=== PATIENT | female | born 1975 | race Caucasian/White ===

== ENCOUNTER → 2020-11-04 | Outpatient (CLI) | payer OTHER ==
[~2020-11-04] MED LIST: ANAPROX DS550 MG PO; ATIVAN0.5 MG PO; B121000 MCG/2; CIPROFLOXACIN500 MG PO; FLAGYL500 MG PO; FLEXERIL10 MG PO; KEFLEX500 MG PO; NAPROSYN500 MG PO; TRAMADOL HCL50 MG PO; VICODIN 5/500 505 MG PO; XANAX0.25 MG; [UNRECOGNIZED DRUG - OTHER]
== END | disposition home or self-care (01) ==
LOC: COVID19 12:39
PROVIDERS: ATTEND Internal Medicine
DX: U07.1 COVID-19 (principal)

== ENCOUNTER → 2021-09-03 | Outpatient (CLI) | payer OTHER ==
[2021-09-03 13:20] LABS: BASO # 0.1 10*3/uL (0.0-0.1); BASO % 0.8 % (0.0-1.0); EOS # 0.3 10*3/uL (0.0-0.4); EOS % 4.4 % (1.0-4.0); HEMATOCRIT 46.3 % (37.0-47.0); LYMPH # 1.9 10*3/uL (1.3-4.4); LYMPH % 31.9 % (27.0-41.0); MEAN CELL VOLUME 98.9 fl (81.0-99.0); MEAN CORPUSCULAR HGB 32.1 pg (27.0-31.0); MEAN CORPUSCULAR HGB CONC 32.4 g/dl (33.0-37.0); MEAN PLATELET VOLUME 8.3 fl (9.6-12.3); MONO # 0.7 10*3/uL (0.1-1.0); MONO % 12.3 % (3.0-9.0); NEUT % 50.4 % (47.0-73.0); PLATELET COUNT AUTOMATED 348 10*3/uL (130-400); RED BLOOD COUNT 4.68 10*6/uL (4.10-5.10)
[2021-09-03 13:42] LABS: ALBUMIN 3.5 gm/dl (3.1-4.5); BUN 11 mg/dl (7-24); CHLORIDE 109 mmol/L (98-107); CREATININE 0.96 mg/dL (0.55-1.02); POTASSIUM 4.5 mmol/L (3.5-5.1); SGOT/AST 14 IU/L (3-35); SGPT/ALT 24 U/L (12-78); SODIUM 137 mmol/L (136-145); TOTAL PROTEIN 7.2 gm/dL (6.4-8.2); URIC ACID 3.9 mg/dL (2.6-6.0)
[2021-09-03 13:43] LABS: ALKALINE PHOSPHATASE 95 U/L (45-117)
[2021-09-04 09:07] LABS: RHEUMATOID ARTHRITIS FACTOR <10.0 IU/mL (0.0-13.9)
== END | disposition home or self-care (01) ==
LOC: LAB 12:59
PROVIDERS: ATTEND Internal Medicine
DX: M13.0 Polyarthritis, unspecified (principal); R00.2 Palpitations

== ENCOUNTER → 2022-12-24 | Outpatient (CLI) | payer OTHER ==
[~2022-12-24] MED LIST changes: +HYDROCODONE-AC1 EAC1 PO
== END | disposition home or self-care (01) ==
LOC: RAD 13:56
PROVIDERS: ATTEND Internal Medicine
DX: S93.504A Unspecified sprain of right lesser toe(s), initial encounter (principal); X58.XXXA Exposure to other specified factors, initial encounter; Y93.89 Activity, other specified; Y92.89 Other specified places as the place of occurrence of the external cause; Y99.8 Other external cause status

== ENCOUNTER 2022-12-25 15:42 | Emergency (ER) | payer OTHER ==
[~2022-12-25] VITALS: Ht 170.1 cm; Wt 77.1 kg
[~2022-12-25 15:42] MED LIST changes: -HYDROCODONE-AC1 EAC1 PO
[2022-12-25 15:48] VITALS: BP 153/85
[2022-12-25] MEDS ORDERED: HYDROCODONE-AC1 EAC1 PO (15:53)
== END 2022-12-25 15:59 | disposition home or self-care (01) ==
LOC: ED 15:42
DX: S92.324A Nondisplaced fracture of second metatarsal bone, right foot, initial encounter for closed fracture (principal); Z98.51 Tubal ligation status; Z90.49 Acquired absence of other specified parts of digestive tract; W10.8XXA Fall (on) (from) other stairs and steps, initial encounter; Y93.89 Activity, other specified; Y92.89 Other specified places as the place of occurrence of the external cause; Y99.8 Other external cause status

== ENCOUNTER → 2023-06-22 | Outpatient (CLI) | payer OTHER ==
[~2023-06-22] MED LIST changes: +HYDROCODONE-AC1 EAC1 PO
== END | disposition home or self-care (01) ==
LOC: MRI 01:39
PROVIDERS: ATTEND Internal Medicine
DX: M51.36 Other intervertebral disc degeneration, lumbar region (principal); M43.17 Spondylolisthesis, lumbosacral region; M41.86 Other forms of scoliosis, lumbar region; M48.061 Spinal stenosis, lumbar region without neurogenic claudication

== ENCOUNTER → 2023-07-11 | Outpatient (CLI) | payer OTHER | END | disposition home or self-care (01) | LOC: MAMMO 01:20 | PROVIDERS: ATTEND Internal Medicine | DX: Z12.31 Encounter for screening mammogram for malignant neoplasm of breast (principal) ==

== ENCOUNTER → 2024-01-11 | Outpatient (CLI) | payer OTHER ==
[2024-01-11 13:54] LABS: BASO # 0.1 10*3/uL (0.0-0.1); BASO % 0.8 % (0.0-1.0); EOS # 0.3 10*3/uL (0.0-0.4); EOS % 4.7 % (1.0-4.0); LYMPH # 1.4 10*3/uL (1.3-4.4); LYMPH % 22.2 % (27.0-41.0); MEAN CELL VOLUME 94.2 fl (81.0-99.0); MEAN CORPUSCULAR HGB 30.3 pg (27.0-31.0); MEAN CORPUSCULAR HGB CONC 32.1 g/dl (33.0-37.0); MEAN PLATELET VOLUME 8.8 fl (9.6-12.3); MONO # 0.7 10*3/uL (0.1-1.0); NEUT # 3.8 10*3/uL (2.3-7.9); NEUT % 60.5 % (47.0-73.0); PLATELET COUNT AUTOMATED 358 10*3/uL (130-400); RED BLOOD COUNT 4.99 10*6/uL (4.10-5.10); RED CELL DISTRI WIDTH 13.4 % (0-14.5); WHITE BLOOD COUNT 6.3 10*3/uL (4.8-10.8)
[2024-01-11 14:15] LABS: URINE AMPHETAMINES Positive (1000ng/ml); URINE BARBITURATES Negative (200ng/ml); URINE BENZODIAZEPINES Negative (200ng/ml); URINE CANNABINOIDS (THC) Positive (50ng/ml); URINE COCAINE Negative (300ng/ml); URINE METHADONE Negative (300ng/ml); URINE OPIATES Negative (300ng/ml); URINE PHENCYCLIDINE Negative (25ng/ml)
[2024-01-11 14:23] LABS: ALKALINE PHOSPHATASE 167 U/L (46-116); BUN 8 mg/dl (9-23); CHLORIDE 108 mmol/L (98-107); CHOLESTEROL 224 mg/dL (<200); FREE T4 0.94 ng/dl (0.89-1.76); LDL CHOLESTEROL 153 mg/dL (9-159); SGPT/ALT 26 U/L (5-49); TOTAL PROTEIN 7.1 gm/dL (6.0-8.0); TRIGLYCERIDES 84 mg/dl (<150); VITAMIN D, 25-HYDROXY 8.5 ng/mL (30-100)
== END | disposition home or self-care (01) ==
LOC: LAB 12:37
PROVIDERS: ATTEND Internal Medicine
DX: S92.332D Displaced fracture of third metatarsal bone, left foot, subsequent encounter for fracture with routine healing (principal); F41.8 Other specified anxiety disorders; M79.672 Pain in left foot; F90.9 Attention-deficit hyperactivity disorder, unspecified type; X58.XXXD Exposure to other specified factors, subsequent encounter

== ENCOUNTER 2024-01-17 11:52 | Emergency (ER) | payer OTHER ==
[~2024-01-17] VITALS: Ht 170.1 cm; Wt 90.7 kg
[2024-01-17 12:30] VITALS: BP 132/96
[2024-01-17] MEDS ORDERED: OMEPRAZOLE40 MG PO (12:32)
[2024-01-17] MEDS ORDERED: ADDERALL 30 MG30 MG PO (12:32)
[2024-01-17] MEDS ORDERED: NAPROXEN500 MG PO (12:32)
[2024-01-17] MEDS ORDERED: GABAPENTIN800 MG PO (12:32)
[2024-01-17] MEDS ORDERED: SENNA-TIME S T1 EACH PO (12:33)
[2024-01-17] MEDS ORDERED: ZOLOFT25 MG PO (12:34)
[2024-01-17] MEDS ORDERED: MILK OF MA400 MG/5 M PO (12:35)
== END 2024-01-17 13:17 | disposition home or self-care (01) ==
LOC: ED 11:52
DX: M79.672 Pain in left foot (principal)

== ENCOUNTER → 2025-04-20 | Outpatient (CLI) | payer OTHER ==
[~2025-04-20] MED LIST changes: +ADDERALL 30 MG30 MG PO; +GABAPENTIN800 MG PO; +MILK OF MA400 MG/5 M PO; +NAPROXEN500 MG PO; +OMEPRAZOLE40 MG PO; +SENNA-TIME S T1 EACH PO; +ZOLOFT25 MG PO
== END | disposition home or self-care (01) ==
LOC: US 02:50
PROVIDERS: ATTEND Internal Medicine
DX: R74.8 Abnormal levels of other serum enzymes (principal); Z90.49 Acquired absence of other specified parts of digestive tract